=== PATIENT | female | born 1975 | race Caucasian/White ===

== ENCOUNTER 2016-09-30 16:15 | Emergency (ER) | payer OTHER ==
[~2016-09-30] VITALS: Ht 157.5 cm; Wt 78.7 kg
[2016-09-30 16:18] VITALS: Ht 157.5 cm; Wt 78.7 kg
--- NOTE | 2016-09-30 17:41 | ERD ---
ER Documentation Chief Complaint Date/Time DATE: 09/30/16 TIME: 17:38 Chief Complaint NOT PREG , BLEEDING X 20 DAYS HPI 41 year old female comes in with vaginal bleeding x 20 days. She states she has been using about 10 pads per day, saw her pcp today who referred her to the ER. She states that started with her menstrual cycle, usually she bleeds every 28- 40 days, and about 7 days each cycle. She has had an IUD for approximately a year and a half now. She denies chest pain, shortness of breath. She reports slight pelvic discomfort, but she states it does not seem to really bother her. ROS All systems reviewed and are negative except as per history of present illness. Medications Home Meds Active Scripts Medroxyprogesterone Acetate* (Provera*) 10 Mg Tablet, 10 MG PO DAILY for 7 Days , TAB Prov:ELISA DISLA PA-C 09/30/16 Ferrous Sulfate* (Ferrous Sulfate*) 325 Mg Tabec, 325 MG PO TID, #90 TAB Prov:ELISA DISLA PA-C 09/30/16 Allergies Allergies: Coded Allergies: No Known Drug Allergies (Verified Allergy, Mild, 03/25/10) PMhx/Soc History of Surgery: Yes (APPENDECTOMY 1986,CSECTION 2004) Anesthesia Reaction: No Hx Neurological Disorder: No Hx Respiratory Disorders: No Hx Cardiac Disorders: No Hx Psychiatric Problems: No Hx Miscellaneous Medical Probl: No Hx Alcohol Use: No Hx Substance Use: No Hx Tobacco Use: No Smoking Status: Never smoker Physical Exam Vitals Vital Signs Date Time Temp Pulse Resp B/P Pulse Ox O2 Delivery O2 Flow Rate FiO2 09/30/16 16:18 98.1 99 20 120/72 99 Physical Exam General: Well-developed, well-nourished. The patient appears in no acute distress. HEENT: Head is normocephalic, atraumatic. No scleral icterus. Neck: Supple. Nontender. Lungs: Clear to auscultation. Normal air movement. Heart: Regular rate and rhythm. S1 and S2 are normal. No murmurs, gallops, or rubs. Abdomen: Soft, nontender, nondistended. Bowel sounds are normoactive. Extremities: No clubbing or cyanosis. Normal pulses. Moving extremities x 4. No weakness. Neurologic: Alert and oriented 3. No focal deficits. Skin: Normal turgor. No rash or lesions. Result Diagram: 09/30/16 1735 09/30/16 1735 Results 24 hrs Laboratory Tests Test 09/30/16 17:35 White Blood Count 6.110^3/ul Red Blood Count 3.8010^6/ul Hemoglobin 8.2g/dl Hematocrit 27.9% Mean Corpuscular Volume 73.4fl Mean Corpuscular Hemoglobin 21.6pg Mean Corpuscular Hemoglobin Concent 29.4g/dl Red Cell Distribution Width 18.7% Platelet Count 22300^3/UL Mean Platelet Volume 10.6fl Neutrophils % 59.8% Lymphocytes % 31.9% Monocytes % 6.8% Eosinophils % 1.0% Basophils % 0.3% Nucleated Red Blood Cells % 0.0/100WBC Neutrophils # 3.710^3/ul Lymphocytes # 2.010^3/ul Monocytes # 0.410^3/ul Eosinophils # 0.110^3/ul Basophils # 0.010^3/ul Nucleated Red Blood Cells # 0.010^3/ul Sodium Level 138mmol/L Potassium Level 4.0mmol/L Chloride Level 107mmol/L Carbon Dioxide Level 26mmol/L Anion Gap 9 Blood Urea Nitrogen 12mg/dl Creatinine 0.57mg/dl Glucose Level 99mg/dl Calcium Level 9.0mg/dl Total Bilirubin 0.1mg/dl Direct Bilirubin 0.00mg/dl Indirect Bilirubin 0.1mg/dl Aspartate Amino Transf (AST/SGOT) 14IU/L Alanine Aminotransferase (ALT/SGPT) 27IU/L Alkaline Phosphatase 71IU/L Total Protein 6.9g/dl Albumin 4.0g/dl Globulin 2.90g/dl Albumin/Globulin Ratio 1.37 Current Medications Medications (Trade) Dose Ordered Sig/Angela Route PRN Reason Start Time Stop Time Status Last Admin Dose Admin Medroxyprogesterone Acetate (Provera) 10 mg ONCE ONCE PO 09/30/16 18:30 09/30/16 18:31 DC Docusate Sodium/ Ferrous Fumarate (Aye-Sequels) 1 tab ONCE ONCE PO 09/30/16 18:30 09/30/16 18:31 DC PROCEDURE: US pelvis complete and transvaginal CLINICAL INDICATION: Vaginal bleeding for 3 weeks TECHNIQUE: Go scale and color Doppler imaging of the pelvis was performed. Endovaginal scanning was performed for more detailed evaluation of the endometrium. The images were reviewed on a PACS workstation. COMPARISON: None. FINDINGS: The uterus measures 10.4 x 7.9 x 7.7 centimeters. The uterus is retroflexed. The uterus is slightly globular in configuration with shadowing from the fundus which may reflect small underlying fibroids. Cervical Nabothian cysts are seen. The right ovary measures 3 x 2 x 2.5 centimeters and the left ovary measures 3 x 1.8 x 2.9 centimeters. The endometrial stripe measures 4 millimeters in thickness and an IUD device is seen in place.. No fibroids are seen. Arterial flow both ovaries is seen. Irregular bilateral ovarian follicles. Trace free fluid is seen in the cul-de-sac. IMPRESSION: IUD which appears in good position. Possible small uterine fibroids. Bilateral ovarian follicles. No definite cysts or masses. Trace free fluid in the cul-de-sac. RPTAT: [facility] Physician Rudolph Date Time Electronically viewed and signed by Evy Bates Physician on 09/30/2016 18 :46 Procedures/MDM 41-year-old female comes to the emergency department with abnormal vaginal bleeding for approximately 3 weeks now. Patient states that it started with her menstrual cycle, she is now currently going through about 10 pads per day. Patient's vitals reviewed, there are no signs of dehydration, hemodynamic instability. Hemoglobin at this time is 8.2, she is asymptomatic. An ultrasound the pelvis was stone, probable uterine fibroids, no masses. She was given a dose of Provera as well as iron in the emergency department, and maybe continue at home as well. There are no signs of hemodynamic instability, severe anemia requiring transfusion or hospitalization. She was asked to follow -up with PICC NURSE within the next week for follow-up. Departure Diagnosis: Primary Impression: Dysfunctional uterine bleeding Additional Impression: Anemia Condition: Good ELISA DISLA PA-C Sep 30, 2016 17:41
[2016-09-30 17:56] LABS: ADD SCAN DIFF NO
[2016-09-30 17:58] LABS: BASOPHILS % 0.3 % (0.0-2.0); EOSINOPHILS # 0.1 10^3/ul (0.0-0.5); HEMATOCRIT 27.9 % (37.0-47.0); HEMOGLOBIN 8.2 g/dl (12.0-16.0); LYMPHOCYTES % 31.9 % (15.0-51.0); MEAN CORPUSCULAR HEMOGLOBIN 21.6 pg (29.0-33.0); MEAN CORPUSCULAR HGB CONC 29.4 g/dl (32.0-37.0); MEAN CORPUSCULAR VOLUME 73.4 fl (82.0-101.0); MEAN PLATELET VOLUME 10.6 fl (7.4-10.4); MONOCYTE # 0.4 10^3/ul (0.3-0.9); MONOCYTES % 6.8 % (0.0-11.0); NEUTROPHIL # 3.7 10^3/ul (1.6-7.5); NEUTROPHILS % 59.8 % (39.0-77.0); PLATELET COUNT 329 10^3/UL (140-415); RED CELL DISTRIBUTION WIDTH 18.7 % (11.5-14.5); WHITE BLOOD COUNT 6.1 10^3/ul (4.8-10.8)
[2016-09-30 18:12] LABS: ALBUMIN/GLOBULIN RATIO 1.37; BILIRUBIN,INDIRECT 0.1 mg/dl (0-1.1); BILIRUBIN,TOTAL 0.1 mg/dl (0.2-1.3); CREATININE 0.57 mg/dl (0.44-1.00); TOTAL PROTEIN 6.9 g/dl (6.1-8.1)
[2016-09-30] MEDS ORDERED: FERROUS FUMARATE (SR) TAB PO ONE (18:30)
[2016-09-30] MEDS ORDERED: MEDROXYPROGESTERONE 10 MG TAB PO ONE (18:30)
[2016-09-30] MEDS ORDERED: FER325 PO (18:31)
[2016-09-30] MEDS ORDERED: MEDR10TA2 PO (18:31)
--- NOTE | 2016-09-30 18:46 | RADRPT ---
PROCEDURE: US pelvis complete and transvaginal CLINICAL INDICATION: Vaginal bleeding for 3 weeks TECHNIQUE: Go scale and color Doppler imaging of the pelvis was performed. Endovaginal scanning was performed for more detailed evaluation of the endometrium. The images were reviewed on a PACS workstation. COMPARISON: None. FINDINGS: The uterus measures 10.4 x 7.9 x 7.7 centimeters. The uterus is retroflexed. The uterus is slightly globular in configuration with shadowing from the fundus which may reflect small underlying fibroids . Cervical Nabothian cysts are seen. The right ovary measures 3 x 2 x 2.5 centimeters and the left ovary measures 3 x 1.8 x 2.9 centimeters. The endometrial stripe measures 4 millimeters in thicknes s and an IUD device is seen in place.. No fibroids are seen. Arterial flow both ovaries is seen. Ir regular bilateral ovarian follicles. Trace free fluid is seen in the cul-de-sac. IMPRESSION: IUD which appears in good position. Possible small uterine fibroids. Bilateral ovarian follicles. No definite cysts or masses. Trace free fluid in the cul-de-sac. RPTAT: [facility] Physician Rudolph Date Time Electronically viewed and signed by Physician Rudolph on 09/30/2016 18:46 LE/
[2016-09-30 20:06] VITALS: BP 124/78; PULSE 94; RESP 22; TEMP 97.8
== END 2016-09-30 20:08 | disposition home or self-care (01) ==
LOC: FTE 16:15
DX: N39.8 Other specified disorders of urinary system (principal); D64.9 Anemia, unspecified; R10.2 Pelvic and perineal pain
CPT/HCPCS: 36415; 76830; 76856; 80053; 85025; Z7502; Z7610

== ENCOUNTER 2017-02-19 05:52 | Day surgery (SDC) | payer OTHER ==
[2017-02-18 15:15] VITALS: BMI 37.1
[~2017-02-19] VITALS: Ht 160 cm; Wt 95.7 kg
[2017-02-19] VITALS (12 sets, daily range): BP systolic 101–120; BP diastolic 69–81; PULSE 74–92; RESP 16–19; Ht 160 cm; Wt 95.7 kg
[~2017-02-19 05:52] MED LIST: FER325 PO; MEDR10TA2 PO
[2017-02-19] MEDS ORDERED: DESFLURANE 15 MIN ONE (07:00)
--- NOTE | 2017-02-19 08:39 | HPN ---
Date/Time of Note Date/Time of Note DATE: 02/19/17 TIME: 08:39 Interval H&P Admission Note Pt. seen H&P reviewed: No system changes ZORAN SNOW MD Feb 19, 2017 08:39
[2017-02-19] MEDS ORDERED: FENTAnyl 50 MCG/ML VIAL ONE (08:46)
[2017-02-19] MEDS ORDERED: ROCURONIUM 50 MG INJ ONE (09:03)
[2017-02-19] MEDS ORDERED: SUCCINYLCHOLINE CHLORIDE 100 MG/5 ML SYG IV ONE (09:03)
[2017-02-19] MEDS ORDERED: PROPOFOL 20 ML ONE (09:03)
[2017-02-19] MEDS ORDERED: LIDOCAINE 2% (SDV) 5 ML INJ ONE (09:03)
[2017-02-19] MEDS ORDERED: SUGAMMADEX SODIUM 200 MG/2 ML VIAL IV ONE (09:03)
[2017-02-19] MEDS ORDERED: CEFAZOLIN 1 GM INJ ONE (09:03)
[2017-02-19] MEDS ORDERED: MEPERIDINE 25 MG INJ IV PRN (09:30)
[2017-02-19] MEDS ORDERED: ONDANSETRON 4 MG INJ IV PRN (09:30)
[2017-02-19] MEDS ORDERED: FENTAnyl 50 MCG/ML VIAL IV PRN ×2 (09:30)
[2017-02-19] MEDS ORDERED: METOCLOPRAMIDE 10 MG INJ IV PRN (09:30)
[2017-02-19] MEDS ORDERED: DIPHENHYDRAMINE 50 MG INJ IV PRN (09:30)
[2017-02-19] MEDS ORDERED: OXYCODONE/ACETAMINOPHEN (5/325) TAB PO PRN (09:30)
[2017-02-19] MEDS ORDERED: HYDROmorphONE (0.2 MG/ML) 10ML SYG IV PRN ×2 (09:30)
--- NOTE | 2017-02-19 09:36 | PD.PPDC ---
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
--- NOTE | 2017-02-19 09:43 | SIPON ---
Date/Time of Note Date/Time of Note DATE: 02/19/17 TIME: 09:38 Operative Report Free Text/Dictation uterine fibroids been causing excessive uterine bleeding Preoperative Diagnosis menometrorrhagia,, uterine fibroids Postoperative Diagnosis saame as above see pstahologic report Operation/Procedure Performed hysteroscopy D&C Surgeon: ZORAN SNOW MD Anesthesia Type: general Estimated Blood Loss: 10 - 50 ml's Transfusion Required: no Specimens [facility] Grafts/Implants: none Grafts/Implants NONE Complications: no ZORAN SNOW MD Feb 19, 2017 09:43
--- NOTE | 2017-02-19 10:58 | OPR ---
DATE OF OPERATION: 02/19/2017 PREOPERATIVE DIAGNOSES: 1. Menometrorrhagia. 2. Uterine leiomyoma. POSTOPERATIVE DIAGNOSES: 1. Menometrorrhagia. 2. Uterine leiomyoma. 3. See pathological report. OPERATION PERFORMED: Hysteroscopy and dilatation and curettage. ANESTHESIA: General. ANESTHESIOLOGIST: SURGEON: Dr. Travis Hi. ESTIMATED BLOOD LOSS: Approximately 30 cc. OPERATIVE PROCEDURE: Under appropriate induction of general anesthesia, the patient was placed in the dorsal lithotomy position. Perineal area and vagina were prepped and draped in usual aseptic manner. Bimanual examination was inadequate due to the body habitus. External genitalia revealed no gross abnormalities. Weighted speculum was introduced. Cervix was parous, and anteriorly above cervix was rather bulky compared to the lower lip and the anterior lip of cervix was grasped and cervical curettage was performed with obtaining scant tissue, which was sent to pathology. The cavity was sounded, which was difficult to sound somehow and it was only 7 cm in depth, which is different from the clinical finding. Hysteroscope was introduced, only available to see the endocervical canal. At this point, the hysteroscope was removed and we tried to search the cavity with the sound, which was way on the right side and somehow deviated, most likely due to the existing fibroid, and the cavity was sounded, which was 13 cm. So the scope was reinserted, which was able to locate both sides of the cornea, both sides of the ostium and abundant tissue was visualized with blood. So hysteroscope was reintroduced, and took the picture in the endometrial was performed with a large amount of blood clots and tissue. The cavity on the left lateral side was somewhat irregular, but there was no significant lump, fat. The entire cavity was curetted in all directions, repeated again and tissue was obtained, which was sent to the pathologist. After the first curette and hysteroscope was redone, and still had some tissue left on the left side, which was curetted. The procedure was completed. All the instruments were removed from the operating field and the patient sent to recovery room in stable condition. Dictated By: Janiya Hi MD /maico/ana /Document#: [id number]
== END 2017-02-19 11:15 | disposition home or self-care (01) ==
LOC: SDS 05:52
PROVIDERS: ATTEND Obstetrics & Gynecology
DX: N92.0 Excessive and frequent menstruation with regular cycle (principal); D25.9 Leiomyoma of uterus, unspecified; E66.9 Obesity, unspecified; Z68.37 Body mass index [BMI] 37.0-37.9, adult
CPT/HCPCS: 58558; 84703; 88305; J0690; J2175; J2405; J3010; Z7512; Z7610; J7999

== ENCOUNTER 2018-01-21 20:10 | Observation (INO) | END 2018-01-22 17:59 | disposition home or self-care (01) ==